=== PATIENT | male | born 1980 ===

== ENCOUNTER 2018-08-31 11:26 | Inpatient (IN) | payer OTHER, MEDICAID ==
[2018-08-31 11:39] VITALS: BMI 31.9
[2018-08-31 12:27] LABS: BASO # 0.1 K/uL (0.0-0.2); BASO % 1.2 % (0.0-2.0); EOS # 0.6 K/uL (0.0-0.7); EOS % 6.5 % (0.0-4.0); HEMOGLOBIN 14.6 g/dL (12.0-18.0); LYMPH # 3.1 K/uL (1.0-4.3); LYMPH % 31.2 % (20.0-40.0); MEAN CELL VOLUME 81.3 fl (80.0-94.0); MEAN CORPUSCULAR HEMOGLOBIN 27.2 pg (27.0-31.0); MEAN CORPUSCULAR HGB CONC 33.4 g/dL (33.0-37.0); MEAN PLATELET VOLUME 7.9 fl (7.2-11.7); MONO # 0.8 K/uL (0.0-0.8); MONO % 8.1 % (0.0-10.0); NEUT # 5.3 K/uL (1.8-7.0); NRBC % 0.1 % (0.0-0.0); RBC 5.39 Mil/uL (4.40-5.90); RED CELL DISTRIBUTION WIDTH 15.1 % (11.5-14.5); WHITE BLOOD COUNT 9.9 K/uL (4.8-10.8)
[2018-08-31 12:33] LABS: PROTHROMBIN TIME 11.8 Seconds (9.8-13.1)
[2018-08-31 12:39] LABS: ALB/GLOB RATIO 1.3 (1.0-2.1); ALBUMIN 4.4 g/dL (3.5-5.0); ALT/SGPT 51 U/L (21-72); AST/SGOT 30 U/L (17-59); BLOOD UREA NITROGEN 13 mg/dl (9-20); CALCIUM 9.1 mg/dL (8.4-10.2); GFR NON-AFRICAN AMERICAN > 60
--- NOTE | 2018-08-31 13:23 | CP.PCM.CON ---
History of Present Illness - History of Present Illness History of Present Illness: Neurosurgical consult: Dr. Gaitan Patient is a 38 y/o male c/o severe lower back pain. The patient has had chronic lower back pain since a work injury that occurred in May 2014. 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 The pain has progressively worsened over the past few weeks, resistant to conservative means. He has undergone conservative management with PT and oral meds, as well as multiple epidural injections and a lumbar percutaneous microdiscectomy without relief. He has had daily pain hindering his usual activities such as walking and stair climbing. He has pain traveling down both LE, greater to the RLE. He denies any numbness/tingling to the LE. He also denies bowel/bladder dysfunction or saddle paresthesias. He denies CP/SOB/N/V/D/fever/melena/dysuria. PMH: HTN, GERD PSH: lumbar percutaneous microdiscectomy meds: Besylate allergy: dairy (anyphylaxis) SH: denies tobacco/ETOH/drug use Review of Systems - Review of Systems All systems: reviewed and no additional remarkable complaints except Review of Systems: as per HPI Past Patient History - Infectious Disease Hx of Infectious Diseases: None - Past Medical History & Family History Past Family History: Reviewed and not pertinent - Past Social History Smoking Status: Never Smoked - CARDIAC Hx Hypertension: Yes - PSYCHIATRIC Hx Substance Use: No - ANESTHESIA Hx Anesthesia: No Meds Allergies/Adverse Reactions: Allergies Allergy/AdvReac Type Severity Reaction Status Date / Time dairy Allergy SWELLING Uncoded 08/31/18 12:03 Physical Exam - Constitutional Appears: Well, No Acute Distress - Head Exam Head Exam: ATRAUMATIC, NORMOCEPHALIC - Eye Exam Eye Exam: EOMI, Normal appearance - ENT Exam ENT Exam: Mucous Membranes Moist - Respiratory Exam Respiratory Exam: NORMAL BREATHING PATTERN - Extremities Exam Extremities exam: Positive for: normal inspection - Back Exam Additional comments: Lumbar: right old scar well healed diffuse midline tenderness, bilateral paraspinal tenderness sensation intact SP/DP/TN motor intact EHL/FHL/TA/G neg clonus +SLR RLE - Neurological Exam Neurological exam: Alert, CN II-XII Intact, Oriented x3 - Psychiatric Exam Psychiatric exam: Normal Affect, Normal Mood - Skin Skin Exam: Normal Color, Warm Results - Vital Signs Recent Vital Signs: Last Vital Signs Temp 98.4 F 08/31/18 11:38 Pulse 80 08/31/18 11:38 Resp 20 08/31/18 11:38 BP 172/87 H 08/31/18 11:38 Pulse Ox 97 08/31/18 11:38 - Labs Result Diagrams: 08/31/18 12:20 08/31/18 12:20 Labs: Laboratory Results - last 24 hr 08/31/18 08/31/18 08/31/18 12:20 12:20 12:20 WBC 9.9 RBC 5.39 Hgb 14.6 Hct 43.8 MCV 81.3 MCH 27.2 MCHC 33.4 RDW 15.1 H Plt Count 277 MPV 7.9 Neut % (Auto) 53.0 Lymph % (Auto) 31.2 [place] % (Auto) 8.1 Eos % (Auto) 6.5 H Baso % (Auto) 1.2 Neut # (Auto) 5.3 Lymph # (Auto) 3.1 [place] # (Auto) 0.8 Eos # (Auto) 0.6 Baso # (Auto) 0.1 PT 11.8 INR 1.0 Sodium 140 Potassium 3.6 Chloride 105 Carbon Dioxide 26 Anion Gap 13 BUN 13 Creatinine 1.0 Est GFR ( Amer) > 60 Est GFR (Non-Af Amer) > 60 Random Glucose 90 Calcium 9.1 Total Bilirubin 0.6 AST 30 ALT 51 Alkaline Phosphatase 76 Total Protein 7.9 Albumin 4.4 Globulin 3.5 Albumin/Globulin Ratio 1.3 - Impressions Impression: MRI from outside facility reveals disc herniation at L4-L5 Assessment & Plan (1) Lumbar disc herniation Assessment and Plan: MRI images reviewed by Dr. Gaitan. Plan is to perform L4-5 lumbar laminectomy, possible other levels Risks/benefits/alternatives were explained to patient who understands and agrees to proceed with procedure NPO pMN preop labs D/w Dr. Gaitan who agrees with above Status: Acute
--- NOTE | 2018-08-31 13:32 | ED PDOC ---
HPI: Back Time Seen by Provider: 08/31/18 11:54 Chief Complaint (Nursing): Back Pain Chief Complaint (Provider): Back Pain History Per: Patient History/Exam Limitations: no limitations Onset/Duration Of Symptoms: Worse Since, Other (chronic ) Current Symptoms Are (Timing): Still Present Quality Of Discomfort: "Pain" Additional Complaint(s): 38 year old male with HTN presents to the ED for an evaluation of back pain. Patient was referred to the ED by Dr. Gaitan as patient has a hisotry of chronic back pain for 8 years. Patient had an MRI done on August 29, 2018 which presented right lateral disc herniation. Currently, has increased pain. O therwise, he denies numbness, weakness, incontinence, chest pain, nausea, vomiting or diarrhea. PMD: Parminder Gaitan Past Medical History Reviewed: Historical Data, Nursing Documentation, Vital Signs Vital Signs: Last Vital Signs Temp 98.4 F 08/31/18 11:38 Pulse 80 08/31/18 11:38 Resp 20 08/31/18 11:38 BP 172/87 H 08/31/18 11:38 Pulse Ox 97 08/31/18 11:38 - Medical History PMH: HTN - Surgical History Surgical History: No Surg Hx - Family History Family History: States: Unknown Family Hx - Social History Current smoker - smoking cessation education provided: No Alcohol: None Drugs: Denies - Home Medications Home Medications: Ambulatory Orders Medication Instructions Recorded amLODIPine [Norvasc] 5 mg PO HS 08/31/18 - Allergies Allergies/Adverse Reactions: Allergies Allergy/AdvReac Type Severity Reaction Status Date / Time dairy Allergy SWELLING Uncoded 08/31/18 12:03 Review of Systems ROS Statement: Except As Marked, All Systems Reviewed And Found Negative Constitutional: Negative for: Fever Cardiovascular: Negative for: Chest Pain Respiratory: Negative for: Shortness of Breath Musculoskeletal: Positive for: Back Pain Neurological: Negative for: Weakness, Numbness Physical Exam - Reviewed Nursing Documentation Reviewed: Yes Vital Signs Reviewed: Yes - Physical Exam Appears: Positive for: Well, Non-toxic, No Acute Distress Head Exam: Positive for: ATRAUMATIC, NORMAL INSPECTION, NORMOCEPHALIC Skin: Positive for: Normal Color, Warm, Dry. Negative for: Rash Eye Exam: Positive for: EOMI, Normal appearance, PERRL ENT: Positive for: Normal ENT Inspection Neck: Positive for: Normal, Painless ROM Cardiovascular/Chest: Positive for: Regular Rate, Rhythm. Negative for: Murmur Respiratory: Positive for: Normal Breath Sounds. Negative for: Respiratory Distress Gastrointestinal/Abdominal: Positive for: Normal Exam, Soft. Negative for: Tenderness Back: Positive for: Normal Inspection Extremity: Positive for: Normal ROM. 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 Negative for: Motor/Sensory Deficits - Laboratory Results Result Diagrams: 08/31/18 12:20 08/31/18 12:20 Lab Results: PT 11.8 Seconds (9.8-13.1) 08/31/18 12:20 INR 1.0 08/31/18 12:20 Total Bilirubin 0.6 mg/dl (0.2-1.3) 08/31/18 12:20 AST 30 U/L (17-59) 08/31/18 12:20 ALT 51 U/L (21-72) 08/31/18 12:20 Alkaline Phosphatase 76 U/L (38-126) 08/31/18 12:20 Total Protein 7.9 G/DL (6.3-8.2) 08/31/18 12:20 Albumin 4.4 g/dL (3.5-5.0) 08/31/18 12:20 Globulin 3.5 gm/dL (2.2-3.9) 08/31/18 12:20 Albumin/Globulin Ratio 1.3 (1.0-2.1) 08/31/18 12:20 - ECG O2 Sat by Pulse Oximetry: 97 (RA) Pulse Ox Interpretation: Normal Medical Decision Making Medical Decision Making: Time: 12:05 Impression: back pain - acute on chronic Plan: BBK Type and screen EKG CMP CBC w/ differential Prothrombin Time Morphine 2mg Reevaluation 12:40 Dr. Perez works with Dr. Jean and HUANG Garibay who is aware of patient (Dr Gaitan will also be made aware) who accepted the patient for acute on chronic lower back pain evaluation and possible surgery. ------- Scribe Attestation: Documented by Naomi Mina, acting as a scribe for Jovanni Carrillo MD. Provider Scribe Attestation: All medical record entries made by the Scribe were at my direction and personally dictated by me. I have reviewed the chart and agree that the record accurately reflects my personal performance of the history, physical exam, medical decision making, and the department course for this patient. I have also personally directed, reviewed, and agree with the discharge instructions and disposition. Disposition - Clinical Impression Clinical Impression: Back pain - Patient ED Disposition Is Patient to be Admitted: Yes Counseled Patient/Family Regarding: Studies Performed, Diagnosis - Disposition Disposition Time: 12:25 Condition: STABLE
--- NOTE | 2018-08-31 15:44 | RAD ---
Date of service: 08/31/2018 HISTORY: preop COMPARISON: No prior. TECHNIQUE: Chest PA and lateral views FINDINGS: LUNGS: No active pulmonary disease. PLEURA: No significant pleural effusion identified. No pneumothorax apparent. CARDIOVASCULAR: No aortic atherosclerotic calcification present. Normal cardiac size. No pulmonary vascular congestion. OSSEOUS STRUCTURES: Old healed fractures right 6th and 7th ribs. VISUALIZED UPPER ABDOMEN: Normal. OTHER FINDINGS: None. IMPRESSION: No active disease.
[2018-09-01] MEDS: Lactated Ringer's 1,000 ML IV SCH ×3 (00:36→13:12)
--- NOTE | 2018-09-01 01:03 | CP.PCM.HP ---
History of Present Illness - History of Present Illness History of Present Illness: HPI: 38 y/o male presented with acute on chronic back pain. As per the pt, he fell off a 10-foot ladder several years ago and this has caused significant back pain. The pt sees Dr. Gaitan in his office and has tried physical therapy + multiple injections. However, he reports the pain has been worsening as of late. At present, the pt reports tenderness and painful ROM to the lumbar spine. PMH: HTN, GERD. PSH: Lumbar percutaneous microdiscectomy. Allergies: Dairy. Subjective Review of Systems: Reviewed and no additional remarkable complaints except lower back pain. Objective Appears: Anxious, Non-toxic, No Acute Distress. Head Exam: NORMAL INSPECTION, normocephalic. Eye Exam: Normal eye inspection, EOMI, PERRLA. Respiratory Exam: NORMAL BREATHING PATTERN, breath sounds clear bilaterally. Cardiovascular Exam: +S1, +S2. RRR. GI & Abdominal Exam: Soft, non-tender, non-distended. Neurological Exam: Alert and awake, oriented x3. Musculoskeletal Exam: Tenderness and painful ROM to the lumbar spine/lower back area. Psychiatric exam: Normal mood. Calm and cooperative. Skin exam: Normal color, warm, dry. Assessment/Impression/Plan: 1.) Acute on chronic lower back pain -For L4-L5 lumbar laminectomy surgery with Dr. Gaitan. -Coagulation studies were within normal limits. -CXR showed no active disease. -EKG revealed sinus bradycardia, otherwise unremarkable. -NPO past midnight; IVF hydration after. -SCDs for VTE. Will avoid NSAIDS/Toradol preoperatively. -At this time, the pt is medically cleared for surgery tomorrow. Present on Admission - Present on Admission Any Indicators Present on Admission: No Past Patient History - Infectious Disease Hx of Infectious Diseases: None - Past Medical History & Family History Past Family History: Reviewed and not pertinent - Past Social History Alcohol: None Drugs: Denies - CARDIAC Hx Hypertension: Yes - PSYCHIATRIC Hx Substance Use: No - ANESTHESIA Hx Anesthesia: No Meds Allergies/Adverse Reactions: Allergies Allergy/AdvReac Type Severity Reaction Status Date / Time dairy Allergy SWELLING Uncoded 08/31/18 12:03 Results - Vital Signs Recent Vital Signs: Last Vital Signs Temp 98.3 F 08/31/18 23:59 Pulse 66 08/31/18 23:59 Resp 18 08/31/18 23:59 BP 146/90 08/31/18 23:59 Pulse Ox 98 08/31/18 23:59 - Labs Result Diagrams: 08/31/18 12:20 08/31/18 12:20 Labs: Laboratory Results - last 24 hr 08/31/18 08/31/18 08/31/18 12:10 12:20 12:20 WBC 9.9 RBC 5.39 Hgb 14.6 Hct 43.8 MCV 81.3 MCH 27.2 MCHC 33.4 RDW 15.1 H Plt Count 277 MPV 7.9 Neut % (Auto) 53.0 Lymph % (Auto) 31.2 [place] % (Auto) 8.1 Eos % (Auto) 6.5 H Baso % (Auto) 1.2 Neut # (Auto) 5.3 Lymph # (Auto) 3.1 [place] # (Auto) 0.8 Eos # (Auto) 0.6 Baso # (Auto) 0.1 PT INR Sodium 140 Potassium 3.6 Chloride 105 Carbon Dioxide 26 Anion Gap 13 BUN 13 Creatinine 1.0 Est GFR ( Amer) > 60 Est GFR (Non-Af Amer) > 60 Random Glucose 90 Calcium 9.1 Total Bilirubin 0.6 AST 30 ALT 51 Alkaline Phosphatase 76 Total Protein 7.9 Albumin 4.4 Globulin 3.5 Albumin/Globulin Ratio 1.3 Blood Type Blood Type Confirm A POSITIVE Antibody Screen BBK History Checked 08/31/18 08/31/18 12:20 13:30 WBC RBC Hgb Hct MCV MCH MCHC RDW Plt Count MPV Neut % (Auto) Lymph % (Auto) [place] % (Auto) Eos % (Auto) Baso % (Auto) Neut # (Auto) Lymph # (Auto) [place] # (Auto) Eos # (Auto) Baso # (Auto) PT 11.8 INR 1.0 Sodium Potassium Chloride Carbon Dioxide Anion Gap BUN Creatinine Est GFR ( Amer) Est GFR (Non-Af Amer) Random Glucose Calcium Total Bilirubin AST ALT Alkaline Phosphatase Total Protein Albumin Globulin Albumin/Globulin Ratio Blood Type A POSITIVE Blood Type Confirm Antibody Screen Negative BBK History Checked No verified bt Assessment & Plan (1) Back pain Status: Acute (2) Lumbar disc herniation Status: Acute
[2018-09-01] MEDS ORDERED: Absorbable Gelatin Sponge Size 12-7 ONE (07:23)
[2018-09-01] MEDS ORDERED: Bupivacaine 0.5% Inj(30mL) ONE (07:24)
[2018-09-01] MEDS ORDERED: Bacitracin Ointment 30 GM TUBE ONE (07:24)
[2018-09-01] MEDS ORDERED: Thrombin Topical 5,000 Int Units Spray Kit ONE (07:24)
[2018-09-01] MEDS ORDERED: Rocuronium 10 mg/ml (5 ml) ONE (07:51)
[2018-09-01] MEDS ORDERED: Succinylcholine Chloride 20 mg/ml Syr (5 ml) IV ONE (07:51)
[2018-09-01] MEDS ORDERED: Midazolam 2 MG/2 ML VIAL ONE (07:51)
[2018-09-01] MEDS ORDERED: Lidocaine 4% (Laryng-O-Jet) Kit MM ONE (07:52)
--- NOTE | 2018-09-01 09:05 | CARD ---
APPROVED REPORT Date of service: 08/31/2018 EKG Measurement Heart [id number] <Conclusion> Sinus bradycardia Otherwise normal ECG
[2018-09-01] MEDS ORDERED: Lidocaine 1% w Epi 1:100,000 Inj ONE (09:40)
[2018-09-01] MEDS ORDERED: Lidocaine 1% Inj (20ml) ONE (09:40)
[2018-09-01] MEDS ORDERED: Etomidate 20 mg/10ml Inj IV ONE (10:16)
[2018-09-01] MEDS ORDERED: Lactated Ringer's 1,000 ML IV ONE (10:20)
[2018-09-01] MEDS ORDERED: Neostigmine 1:1000 (1 mg/ml) Inj ONE (11:10)
[2018-09-01] MEDS ORDERED: Dexamethasone 4 mg/1 ml IVP PRN (11:49)
[2018-09-01] MEDS ORDERED: Oxycodone/Acetaminophen 5/325 mg Tab PO PRN (12:08)
[2018-09-01] MEDS ORDERED: Lactated Ringer's 1,000 ML IV SCH (12:15)
--- NOTE | 2018-09-01 12:16 | PCM.SURG1 ---
Surgeon's Initial Post Op Note - Surgeon's Notes Surgeon: Parminder Gaitan MD Sponsorship Coordinator: Jerod Morris PA-C Type of Anesthesia: General Endo Anesthesia Administered By: Vamshi Howell MD Pre-Operative Diagnosis: Lumbar disc herniation Operative Findings: see complete operative report Post-Operative Diagnosis: Lumbar disc herniation L4-5 Operation Performed: Lumbar laminectomy and microdiscectomy L4-5 Specimen/Specimens Removed: none Estimated Blood Loss: EBL {In ML}: 30 Blood Products Given: N/A Drains Used: No Drains Post-Op Condition: Good Date of Surgery/Procedure: 09/01/18 Time of Surgery/Procedure: 10:40
--- NOTE | 2018-09-01 12:20 | RAD ---
Date of service: 09/01/2018 PROCEDURE: Intraoperative Fluoroscopy. HISTORY: LUMBAR LAMINECTOMY FINDINGS: Fluoroscopic assistance was provided for lumbar laminectomy.. Please refer to the operative report from HENNA White DR, MD. Total fluoroscopic time (continuous mode) utilized during the procedure 7.1 seconds. Dose report: DLP 4.74 (mGy/m2)
[2018-09-01] MEDS: HYDROmorphone 0.5 mg/0.5 ml ISec IVP PRN ×2 (12:35→13:05)
--- NOTE | 2018-09-02 01:06 | CP.PCM.PN ---
Subjective - Date & Time of Evaluation Date of Evaluation: 09/01/18 Time of Evaluation: 10:15 - Subjective Subjective: Pt currently away in the OR, undergoing L4-L5 lumbar laminectomy with Dr. Gaitan (neurosurgery). Plan of care discussed with staff; chart, meds, and labs reviewed. Assessment/Impression/Plan: 1.) Acute on chronic lower back pain/L4-L5 Lumbar Laminectomy -Currently undergoing L4-L5 lumbar laminectomy surgery with Dr. Gaitan. -Careful post-op management. -Monitor post-op drainage. -Pain control PRN. -Assess for s/s infection. -Continue current treatment. Objective - Vital Signs/Intake and Output Vital Signs (last 24 hours): Temp Pulse Resp BP Pulse Ox 98.2 F 93 H 16 129/82 94 L 09/02/18 00:35 09/02/18 00:35 09/02/18 00:35 09/02/18 00:35 09/02/18 00:35 Intake and Output: 09/01/18 09/02/18 18:59 06:59 Intake Total 1520 740 Output Total 600 Balance 1520 140 - Medications Medications: Current Medications Acetaminophen (Tylenol 325mg Tab) 650 mg PO Q4 PRN PRN Reason: Fever 101 degrees fahrenheit Amlodipine Besylate (Norvasc) 5 mg PO HS [facility] Last Admin: 09/01/18 21:47 Dose: 5 mg Cyclobenzaprine HCl (Flexeril) 10 mg PO Q8 PRN PRN Reason: Muscle spasm Hydromorphone HCl (Dilaudid) 0.5 mg IVP Q4 PRN PRN Reason: Pain, severe (8-10) Lactated Ringer's (Lactated Ringer's) 1,000 mls @ 100 mls/hr IV .Q10H [facility] Last Admin: 09/01/18 13:12 Dose: 100 mls Morphine Sulfate (Morphine) 1 mg IVP Q6 PRN PRN Reason: Pain, Mild (1-3) Morphine Sulfate (Morphine) 2 mg IVP Q6 PRN PRN Reason: Pain, moderate (4-7) Ondansetron HCl (Zofran Inj) 4 mg IVP ONCE PRN PRN Reason: Nausea/Vomiting Last Admin: 09/01/18 16:12 Dose: 4 mg Oxycodone/Acetaminophen (Percocet 5/325 Mg Tab) 2 tab PO Q4 PRN PRN Reason: Pain, moderate (4-7) Stop: 09/04/18 12:09 Last Admin: 09/01/18 21:45 Dose: 2 tab - Labs Labs: 08/31/18 12:20 08/31/18 12:20 PT 11.8 Seconds (9.8-13.1) 08/31/18 12:20 INR 1.0 08/31/18 12:20 Assessment and Plan (1) Back pain Status: Acute (2) Lumbar disc herniation Status: Acute
--- NOTE | 2018-09-02 01:49 | OP ---
PROCEDURE DATE: 09/01/2018 PREOPERATIVE DIAGNOSIS: Lumbar herniated disk at L4-L5. POSTOPERATIVE DIAGNOSIS: Lumbar herniated disk at L4-L5. PROCEDURE: L4-L5 lumbar laminectomy, decompression, and radiofrequency annuloplasty. Fluoroscopy has been used. Microscope has been used. SURGEON: Parminder Gaitan MD PERSONAL FINANCIAL COUNSELOR: Dr. Jerod Morris. Dr. Jerod Morris is the physician post production assistant, who helped me perform the surgery. DESCRIPTION OF PROCEDURE: The patient was brought to the operating room. Anesthetized with general endotracheal anesthesia and placed in a prone position on a Mata table. Care was taken to protect all pressure points. Back of the lumbar area was thoroughly prepped and draped in a standard sterile manner after marking the skin incision for lumbar laminectomy at L4-L5. After prepping and draping the area, the skin has been incised. Bleeding skin had been controlled with bipolar brand designer. After using a Bovie brand designer, paraspinal muscles had been detached, attachments of spinous process and lamina at L4-L5. At this point, a deep retractor had been applied. After identified the levels with fluoroscopy by using a microscopic magnification and illumination, the spinous process of L4-L5 had been drilled. By using a high-speed drill, the lamina of L4-L5, medial part of L4-L5 had been drilled. By using a fine Kerrison punch, thinned out the lamina, medial part of the facets, ligamentum flavum has been removed decompressing this area. After that foraminotomy has been performed, there was a disk herniation noted, no extrusion noted. At this point, radiofrequency machine has been brought in, and the needle has been placed in the disk close to the annulus and radiofrequency thermal coagulation has been achieved, doing an annuloplasty at this level. After that, hemostasis was best achieved. Fascia closed interspinous ligaments and spinous process with 1 Vicryl, subcutaneous with 3-0 Vicryl, and skin has been closed with intradermal 3-0 Vicryl stitches. The patient tolerated the procedure. After the procedure, mobilized to the recovery room in stabilized condition. Parminder Gaitan MD [facility] # [id number]
[2018-09-02 05:06] VITALS: RESP 18
[2018-09-02] MEDS: Lactated Ringer's 1,000 ML IV SCH (06:43)
--- NOTE | 2018-09-02 08:21 | CP.PCM.PN ---
Subjective - Date & Time of Evaluation Date of Evaluation: 09/02/18 Time of Evaluation: 08:18 - Subjective Subjective: Patient seen and examined at bedside. Pain well controlled. OOB without issues. Denies CP/SOB/dizziness/fever. Objective - Vital Signs/Intake and Output Vital Signs (last 24 hours): Temp Pulse Resp BP Pulse Ox 98.3 F 85 18 135/77 96 09/02/18 05:05 09/02/18 05:05 09/02/18 05:05 09/02/18 05:05 09/02/18 05:05 Intake and Output: 09/02/18 09/02/18 06:59 18:59 Intake Total 2790 Output Total 1400 Balance 1390 - Medications Medications: Current Medications Acetaminophen (Tylenol 325mg Tab) 650 mg PO Q4 PRN PRN Reason: Fever 101 degrees fahrenheit Amlodipine Besylate (Norvasc) 5 mg PO HS [facility] Last Admin: 09/01/18 21:47 Dose: 5 mg Cyclobenzaprine HCl (Flexeril) 10 mg PO Q8 PRN PRN Reason: Muscle spasm Hydromorphone HCl (Dilaudid) 0.5 mg IVP Q4 PRN PRN Reason: Pain, severe (8-10) Lactated Ringer's (Lactated Ringer's) 1,000 mls @ 100 mls/hr IV .Q10H [facility] Last Admin: 09/02/18 06:43 Dose: 100 mls/hr Morphine Sulfate (Morphine) 1 mg IVP Q6 PRN PRN Reason: Pain, Mild (1-3) Morphine Sulfate (Morphine) 2 mg IVP Q6 PRN PRN Reason: Pain, moderate (4-7) Ondansetron HCl (Zofran Inj) 4 mg IVP ONCE PRN PRN Reason: Nausea/Vomiting Last Admin: 09/01/18 16:12 Dose: 4 mg Oxycodone/Acetaminophen (Percocet 5/325 Mg Tab) 2 tab PO Q4 PRN PRN Reason: Pain, moderate (4-7) Stop: 09/04/18 12:09 Last Admin: 09/01/18 21:45 Dose: 2 tab - Labs Labs: 08/31/18 12:20 08/31/18 12:20 PT 11.8 Seconds (9.8-13.1) 08/31/18 12:20 INR 1.0 08/31/18 12:20 - Back Exam Additional comments: abd binder in place Dressings CDI mild periwound tenderness sensation intact SP/DP/TN motor intact EHL/FHL - Neurological Exam Neurological Exam: Alert, Awake, CN II-XII Intact, Oriented x3 Assessment and Plan (1) Lumbar disc herniation Assessment & Plan: POD#1 s/p L4-5 laminectomy -PT/OT -abd binder -pain control -neurosurg clear for d/c to home -d/c with percocet, medrol dose rachel, flexeril -f/u in office within 7-10 days d/w Dr. Gaitan who agrees with above Status: Acute
[2018-09-02 09:17] VITALS: BP 138/77; TEMP 98
[2018-09-02 15:43] VITALS: PULSE 83; O2SAT 92
== END 2018-09-02 16:00 | disposition home or self-care (01) | DRG 517 ==
LOC: H.ER 11:26 → H.ERHOLD 12:40 → H.TEL 18:01
PROVIDERS: ADMIT Family Medicine; ATTEND Family Medicine
PROC: F07Z9FZ Gait Training/Functional Ambulation Treatment using Assistive, Adaptive, Supportive or Protective Equipment (ICD-10-PCS; 2018-09-01)
PROC: 01NB0ZZ Release Lumbar Nerve, Open Approach (ICD-10-PCS; principal; 2018-09-01 10:15)
DX: M51.26 Other intervertebral disc displacement, lumbar region (principal); G89.29 Other chronic pain; I10 Essential (primary) hypertension; K21.9 Gastro-esophageal reflux disease without esophagitis; Z91.81 History of falling